=== PATIENT | male | born 1990 ===

== ENCOUNTER 2019-02-15 23:15 | Emergency (ER) | payer OTHER ==
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
[2019-02-16 00:20] VITALS: BP 126/72
== END 2019-02-16 00:21 | disposition home or self-care (01) ==
DX: S51.852A Open bite of left forearm, initial encounter (principal); W50.3XXA Accidental bite by another person, initial encounter; Y92.129 Unspecified place in nursing home as the place of occurrence of the external cause; Y99.0 Civilian activity done for income or pay